=== PATIENT | male | born 1965 | race Caucasian/White ===

== ENCOUNTER → 2022-02-24 09:41 | Outpatient (CLI) | payer OTHER, SELFPAY ==
--- NOTE | 2022-02-24 | DI.MRI.S_ITS ---
PROCEDURE: MR HEAD/BRAIN WO/W CON INDICATIONS: SYNCOPE AND COLLAPSE TECHNIQUE: Noncontrast axial T1 spin echo, axial T2 fast spin echo, sagittal and axial FLAIR, coronal T2 fast spin echo, axial gradient echo, axial diffusion and ADC through the brain. After the administration of contrast, axial and coronal 3D VIBE or T1 spin echo with fat saturation through the brain. COMPARISON: None. FINDINGS: Image quality: Excellent. CSF Spaces: Basal cisterns are patent. No extra-axial fluid collections. Ventricles are normal in size and shape. Brain: No midline shift. No intracranial bleeds or masses. No abnormal intracranial enhancement. The brainstem appears normal. Diffusion-weighted images demonstrate no acute ischemic insults. No chronic ischemic insults. Normal intravascular flow voids are present. Skull and face: Calvarial marrow is normal in signal. Orbits appear normal. Sinuses: Sinuses and mastoids appear clear. IMPRESSION: Normal brain MRI for age, without an imaging explanation found for the patient's presenting history. No findings of acute or subacute infarction can be seen. No masses or abnormal enhancement can be seen. No brain hemorrhage is detected. Dictated by: Julito Blackwell M.D. on 02/24/2022 at 9:58 Approved by: Julito Blackwell M.D. on 02/24/2022 at 9:59
== END ==
PROVIDERS: PCP Student in an Organized Health Care Education/Training Program; Referring Provider Student in an Organized Health Care Education/Training Program; Visit Provider Student in an Organized Health Care Education/Training Program
DX: R55 Syncope and collapse (principal)
CPT/HCPCS: 70553

== ENCOUNTER → 2022-03-24 14:24 | Outpatient (CLI) | payer OTHER, SELFPAY ==
--- NOTE | 2022-03-24 | DI.ECHO.S_ITS ---
[facility]---------+ [facility] +---------+ : : [address] : [place] [address] : : : : [id number] : : : : Phone: [phone]---------+ Echocardiogram Report + + :Name: TALA MCPHERSON Study Date: 03/24/2022 Height: 71 in : :[facility] ReadingLocation: Weight: 199 lb : : Gender: Male BSA: 2.1 m2 : :: 1965 Age: 56 yrs BP: 124/84 mmHg: :Reason For Study: SYNCOPE AND COLLAPSE : :Ordering Physician: CHERELLE, : :SEAN Performed By: Sarai Lara : :Referring: SEAN VILLARREAL : + + Interpretation Summary 1) Normal left ventricular thickness, size, and systolic function (EF 55-60%). 2) Distal inferior wall is hypokinetic. 3) Normal right ventricular size and function. 4) No significant valvular abnormalities. 5) No prior Echo available for comparison. Procedure: A two-dimensional transthoracic echocardiogram with color flow and Doppler was performed. The study quality was technically adequate. There is no prior echocardiogram noted for this patient. The patient was in sinus rhythm with heart rates between 59-70 bpm during the exam. Left Ventricle: Proximal septal thickening is noted. The left ventricle is normal in size. The ejection fraction is estimated to be 55-60%. Distal inferior wall is hypokinetic. Diastolic parameters suggest probable normal left ventricular diastolic function and normal filling pressures. Right Ventricle: The right ventricle is normal in size and function. Atria: The left atrial size is normal. Right atrial size is normal. There is no Doppler evidence for an interatrial shunt. Mitral Valve: The mitral valve is normal in structure and function. There is trace mitral regurgitation. Aortic Valve: The aortic valve is trileaflet. The aortic valve opens well. There is no aortic valve stenosis. No aortic regurgitation is present. Tricuspid Valve: The tricuspid valve is normal in structure and function. There is mild tricuspid regurgitation. The right ventricular systolic pressure is estimated to be at least 21 mmHg based on an estimated right atrial pressure of 3 mm Hg. Pulmonic Valve: The pulmonic valve leaflets are thin and pliable; valve motion is normal. There is mild pulmonic regurgitation. Great Vessels: The aortic root is normal size. The dimensions of the ascending aorta are normal. The IVC is of normal diameter and collapses greater than 50% with a sniff. This suggests a low right atrial pressure of 3 mm Hg. Pericardium/ Pleura There is no pericardial effusion. There is no pleural effusion. MMode/2D Measurements & Calculations LVIDd: 5.0 cm LVOT diam: 2.3 cm LVIDs: 3.1 cm Ao root diam: 3.9 cm FS: 37.9 % asc Aorta Diam: 3.7 cm IVSd: 0.79 cm Ao Arch Diam (Prox Trans): 2.6 cm LVPWd: 0.88 cm LV samano. diameter/BSA (cm/m^2): 2.4 LV sys. diameter/BSA (cm/m^2): 1.5 LA A2 area: 13.7 cm2 RA long axis: 5.1 cm LA A4 area: 14.4 cm2 RA area: 16.0 cm2 LA length (vol): 5.3 cm RA vol: 42.1 ml LA vol: 31.9 ml RA : 20.0 ml/m2 LA vol index: 15.1 ml/m2 IVC diam: 1.1 cm RVD1 (basal): 3.8 cm RVD2 (mid): 3.3 cm TAPSE: 2.0 cm Doppler Measurements & Calculations Ao V2 max: 107.5 cm/sec LVOT Max Demond: 75.4 cm/sec Ao V2 mean: 77.8 cm/sec LV V1 max P.3 mmHg Ao max P.6 mmHg LV V1 VTI: 17.7 cm Ao mean P.7 mmHg MALENA(I,D): 3.3 cm2 Ao V2 VTI: 22.8 cm MALENA(V,D): 3.0 cm2 sev ratio: 0.78 MALENA indexed to BSA (cm^2/m^2): 1.6 MV E max demond: 55.1 cm/sec TR max demond: 215.0 cm/sec MV A max demond: 51.5 cm/sec TR max P.5 mmHg MV E/A: 1.1 PA V2 max: 86.8 cm/sec Med Peak E' Demond: 7.0 cm/sec PA V2 mean: 58.9 cm/sec E/E' med: 7.9 PA mean P.5 mmHg Lat Peak E' Demond: 15.9 cm/sec PA pr(Accel): 41.3 mmHg E/E' lat: 3.5 E/e' average: 5.7 MV dec time: 0.29 sec SVLVOT): 74.8 ml Reading Physician:03:58 PM
== END ==
PROVIDERS: PCP Student in an Organized Health Care Education/Training Program; Referring Provider Student in an Organized Health Care Education/Training Program; Visit Provider Student in an Organized Health Care Education/Training Program
DX: I07.1 Rheumatic tricuspid insufficiency (principal); I37.1 Nonrheumatic pulmonary valve insufficiency; R55 Syncope and collapse
CPT/HCPCS: 93306